=== PATIENT | male | born 1990 | race Two or more races ===

== ENCOUNTER 2024-12-20 09:25 | Outpatient (CLI) | payer OTHER ==
[~2024-12-20] VITALS: Ht 182.9 cm; Wt 97.5 kg
[2024-12-20] MEDS: REGADENOSON 0.4 MG/5 ML SYRG IV ONE ×2 (10:12→12:05)
--- NOTE | 2024-12-21 17:48 | DVHSR ---
APPROVED REPORT Exam: Nuclear Stress Test BMI: 0 Medical History Medical History: PFO, Atrial septal defect Allergies: No known drug allergies Stress Test Details Stress Test: Pharmacologic stress testing performed using 0.4 mg of regadenoson per 5 mL given IV ov er 10 seconds. HR Resting HR: 75 bpmMax Heart Rate (APMHR): 184.588637 bpm Max HR Achieved: 116 bpmTarget HR (85% APMHR): 156.403357 bpm % of APMHR: 63.04 Recovery HR: 89 bpm BP Resting BP: 104/75 mmHg Recovery BP: 129/65 mmHg ECG Resting ECG: Sinus Rhythm Clinical Reason for Termination: Completed protocol Nurse Comments Recieved pt. from Nuc Med. A/Ox4 on RA. Connected to science technician, VS stable. PIV flushes well. Re viewed POC. Pt. verbalized understanding of procedure including risks and side effects, agrees for st ress testing. Lexiscan stress test performed per protocol. I and love and you administered Cardiolite. Pt. tolerated well . Pt. stable, no change on exam. VS returned to baseline. Stress ECG Conclusion fixed inferior wall defect no major ischemia noted lvef 50% SR on ecg NM EXAM: Myocardial Perfusion REST/STRESS Imaging Protocol: Rest Tc-99m/Stress Tc-99m 1 day Resting Data Rest SPECT myocardial perfusion imaging was performed in supine position 60 minutes following the int ravenous injection of 10.0 mCi of Tc-99m Sestamibi. Time of rest injection: 10:46 Date: 12/20/2024 Time of rest imagin:46 Date: 12/20/2024 Administration Route: IV Administration Site: Right Arm Pharmacologic Stress Pharmacologic stress test was performed by injecting Regadenoson 0.4 mg IV push followed by the intra venous injection of 32.5 mCi of Tc-99m Sestamibi. Time of stress injection: 12:15 Date: 12/20/2024 Time of stress imagin:00 Date: 12/20/2024 Administration Route: IV Administration Site: Right Arm Gated Stress SPECT was performed 45 minutes after stress injection. The images were gated to evaluate regional wall motion and calculate left ventricular ejection fracti on. Stress only was performed in the Supine position. Nuclear Conclusion Nuclear Findings: negative for ischemia fixed inferior wall defect no major ischemia noted lvef 50% SR on ecg
== END 2024-12-20 17:00 | disposition home or self-care (01) ==
LOC: XYW 09:25
DX: I08.1 Rheumatic disorders of both mitral and tricuspid valves (principal); I49.8 Other specified cardiac arrhythmias; E03.9 Hypothyroidism, unspecified; E78.5 Hyperlipidemia, unspecified; J45.909 Unspecified asthma, uncomplicated; Z79.899 Other long term (current) drug therapy
CPT/HCPCS: 78452; 93017; A9500; J2785